=== PATIENT | male | born 1995 ===

== ENCOUNTER 2017-02-11 13:51 | Emergency (ER) | payer MEDICAID ==
[2017-02-11 14:11] VITALS: BP 138/85; PULSE 83; RESP 16; TEMP 97.8; O2SAT 98
--- NOTE | 2017-02-11 14:35 | ED PDOC ---
HPI: General Adult Time Seen by Provider: 02/11/17 14:13 Chief Complaint (Nursing): Headache Chief Complaint (Provider): Headache History Per: Patient History/Exam Limitations: no limitations Onset/Duration Of Symptoms: Intermittent Episodes Current Symptoms Are (Timing): Still Present Additional Complaint(s): 22 y/o male with past medical history of concussion (When 16y/o he was diagnosed with concussion had to go through therapy) presents to the ED complaining of intermittent, atraumatic right sided temporal headache since past month and a half. Patient states taking Aleve which provided relief of headache but states that since past 3 days symptoms havent resolved despite taking Aleve. Patient states that headache wakes him up from sleep in the morning and at times he tends to get nauseous but denies vomiting. Patient states sister has migraine headache. Reports no history of intracranial bleeding or skull fractures and denies fever, visual changes, trauma, rash, numbness, weakness or any further medical complaints. Past Medical History Reviewed: Historical Data, Nursing Documentation, Vital Signs Vital Signs: Last Vital Signs Temp 97.8 F 02/11/17 14:09 Pulse 83 02/11/17 14:09 Resp 16 02/11/17 14:09 BP 138/85 02/11/17 14:09 Pulse Ox 98 02/11/17 15:31 - Medical History PMH: Asthma Other PMH: Concussion - Family History Family History: States: Unknown Family Hx - Social History Current smoker - smoking cessation education provided: Yes (Ligth Smoker <10 cigarettes daily) Alcohol: Other (yes) Drugs: Denies - Home Medications Home Medications: Ambulatory Orders Medication Instructions Recorded Metoclopramide [Reglan] 10 mg PO Q8 PRN #20 tab 02/11/17 Naproxen [Naprosyn] 500 mg PO BID PRN #30 tab 02/11/17 - Allergies Allergies/Adverse Reactions: Allergies Allergy/AdvReac Type Severity Reaction Status Date / Time No Known Allergies Allergy Verified 02/11/17 14:09 Review of Systems ROS Statement: Except As Marked, All Systems Reviewed And Found Negative (As per HPI, otherwise negative) Constitutional: Negative for: Fever, Weakness, Other (numbness) Eyes: Negative for: Vision Change Gastrointestinal: Positive for: Nausea. Negative for: Vomiting Skin: Negative for: Rash Neurological: Positive for: Headache. Negative for: Other (trauma) Physical Exam - Reviewed Nursing Documentation Reviewed: Yes Vital Signs Reviewed: Yes - Physical Exam Appears: Positive for: Well, Non-toxic, No Acute Distress Head Exam: Positive for: ATRAUMATIC, NORMAL INSPECTION, NORMOCEPHALIC Skin: Positive for: Normal Color, Warm, Dry Eye Exam: Positive for: EOMI, Normal appearance, PERRL ENT: Positive for: Normal ENT Inspection Neck: Positive for: Normal, Painless ROM, Supple Cardiovascular/Chest: Positive for: Regular Rate, Rhythm. Negative for: Murmur Respiratory: Positive for: Normal Breath Sounds. Negative for: Accessory Muscle Use, Respiratory Distress Gastrointestinal/Abdominal: Positive for: Normal Exam, Bowel Sounds, Soft Back: Positive for: Normal Inspection Extremity: Positive for: Normal ROM. Negative for: Deformity Neurologic/Psych: Positive for: Alert, Oriented (x3) - ECG O2 Sat by Pulse Oximetry: 98 (RA) Pulse Ox Interpretation: Normal Medical Decision Making Medical Decision Making: Time: 14:19 Plan: CT head w/o contrast Toradol 30mg IM Metoclopramide 10mg PO Reevaluation 1524 CT head w/o contrast: negative. On re-evaluation, pt. reports good relief of headache. Advised to stop taking Aleve and take prescribed meds instead. Instructed to f/u with neuro for further evaluation and to return to ED immediately if symptoms persist or worsen. Time: 15:42 Upon provider reevaluation patient is feeling better, is medically stable, and requires no further treatment in the ED at this time. Patient will be discharged home with Rx for Reglan 10mg PO and Naproxen 500mg PO. Return if symptoms persist or worsen. Clinical Impression: Acute Headache Scribe Attestation: Documented by Lewis Flynn acting as a scribe for SORAYA Hidalgo. MD M[place]uley Attestation: All medical record entries made by the Scribe were at my direction and personally dictated by me. I have reviewed the chart and agree that the record accurately reflects my personal performance of the history, physical exam, medical decision making, and the department course for this patient. I have also personally directed, reviewed, and agree with the discharge instructions and disposition. Disposition - Clinical Impression Clinical Impression: Acute headache - Patient ED Disposition Is Patient to be Admitted: No - Disposition Referrals: [facility] [Outside] Disposition: Routine/Home Disposition Time: 15:42 Condition: STABLE Additional Instructions: Follow up with [facility] in 2 days for further evaluation. Return to ED immediately for any concerns or questions. Prescriptions: Metoclopramide [Reglan] 10 mg PO Q8 PRN #20 tab PRN Reason: headache or nausea Naproxen [Naprosyn] 500 mg PO BID PRN #30 tab PRN Reason: Pain Instructions: Acute Headache (ED) Forms: [employer] (Lao), [facility] ED School/Work Excuse Print Language: HEBREW
--- NOTE | 2017-02-11 14:38 | ED PDOC ---
HPI: Headache Time Seen by Provider: 02/11/17 14:13 Chief Complaint (Nursing): Headache Chief Complaint (Provider): Headache History Per: Patient History/Exam Limitations: no limitations Onset/Duration Of Symptoms: Intermittent Episodes (since a month and a half) Current Symptoms Are (Timing): Still Present Additional Complaint(s): 22 y/o male with past medical history of concussion (When 16y/o he was diagnosed with concussion had to go through therapy) presents to the ED complaining of intermittent, atraumatic right sided temporal headache since past month and a half. Patient states taking Aleve which provided relief of headache but states that since past 3 days symptoms havent resolved despite taking Aleve. Patient states that headache wakes him up from sleep in the morning and at times he tends to get nauseous but denies vomiting. Patient states sister has migraine headache. Reports no history of intracranial bleeding or skull fractures and denies fever, visual changes, trauma, rash, numbness, weakness or any further medical complaints. Past Medical History Reviewed: Historical Data, Nursing Documentation, Vital Signs Vital Signs: Last Vital Signs Temp 97.8 F 02/11/17 14:09 Pulse 83 02/11/17 14:09 Resp 16 02/11/17 14:09 BP 138/85 02/11/17 14:09 Pulse Ox 98 02/11/17 14:35 - Medical History PMH: Asthma Other PMH: Concussion - Family History Family History: States: Unknown Family Hx - Social History Current smoker - smoking cessation education provided: Yes (Ligth smoker <10 cigarettes daily) Alcohol: Other (yes) Drugs: Denies - Allergies Allergies/Adverse Reactions: Allergies Allergy/AdvReac Type Severity Reaction Status Date / Time No Known Allergies Allergy Verified 02/11/17 14:09 Review of Systems ROS Statement: Except As Marked, All Systems Reviewed And Found Negative (As per HPI, otherwise negative) Constitutional: Negative for: Fever, Weakness, Other (numbness) Eyes: Negative for: Vision Change Gastrointestinal: Positive for: Nausea. Negative for: Vomiting Skin: Negative for: Rash Neurological: Positive for: Headache (Intermittent, atraumatic right sided temporal headache ). Negative for: Other (trauma ) Physical Exam - Reviewed Nursing Documentation Reviewed: Yes Vital Signs Reviewed: Yes - Physical Exam Appears: Positive for: Well, Non-toxic, No Acute Distress Head Exam: Positive for: ATRAUMATIC, NORMAL INSPECTION, NORMOCEPHALIC Skin: Positive for: Normal Color, Warm, Dry Eye Exam: Positive for: EOMI, Normal appearance, PERRL ENT: Positive for: Normal ENT Inspection Neck: Positive for: Normal, Painless ROM, Supple Cardiovascular/Chest: Positive for: Regular Rate, Rhythm. Negative for: Murmur Respiratory: Positive for: Normal Breath Sounds. Negative for: Accessory Muscle Use, Respiratory Distress Gastrointestinal/Abdominal: Positive for: Normal Exam, Bowel Sounds, Soft Back: Positive for: Normal Inspection Extremity: Positive for: Normal ROM. Negative for: Deformity Neurologic/Psych: Positive for: Alert, Oriented (x3) - ECG O2 Sat by Pulse Oximetry: 98 (RA) Pulse Ox Interpretation: Normal Medical Decision Making Medical Decision Making: Time: 14:19 Plan: CT head w/o contrast Toradol 30mg IM Metoclopramide 10mg PO Reevaluation Scribe Attestation: Documented by Lewis Flynn acting as a scribe for SORAYA Hidalgo. Scribe Attestation: All medical record entries made by the Scribe were at my direction and personally dictated by me. I have reviewed the chart and agree that the record accurately reflects my personal performance of the history, physical exam, medical decision making, and the department course for this patient. I have also personally directed, reviewed, and agree with the discharge instructions and disposition. Disposition - Clinical Impression Clinical Impression: Viral syndrome - Disposition Referrals: [facility] [Outside] Disposition: Routine/Home Disposition Time: 14:33 Additional Instructions: Follow up with [facility] in 2 days for further evaluation. Return to ED immediately for any concerns or questions. Prescriptions: Benzonatate [Tessalon Perle] 100 mg PO Q8 PRN #30 capsule PRN Reason: Cough Naproxen [Naprosyn] 500 mg PO BID PRN #30 tab PRN Reason: pain or fever Instructions: Viral Syndrome (ED) Forms: [employer] (Khmer), [facility] ED School/Work Excuse
--- NOTE | 2017-02-11 15:08 | CT ---
PROCEDURE: CT HEAD WITHOUT CONTRAST. HISTORY: headache COMPARISON: CT head dated 11/29/2010. TECHNIQUE: Axial computed tomography images were obtained through the head/brain without intravenous contrast. Radiation dose: Total exam DLP = 832.7 mGy-cm. This CT exam was performed using one or more of the following dose reduction techniques: Automated exposure control, adjustment of the mA and/or kV according to patient size, and/or use of iterative reconstruction technique. FINDINGS: HEMORRHAGE: No intracranial hemorrhage. BRAIN: No mass effect or edema. No atrophy or chronic microvascular ischemic changes. VENTRICLES: Unremarkable. No hydrocephalus. CALVARIUM: Unremarkable. PARANASAL SINUSES: Unremarkable as visualized. No significant inflammatory changes. MASTOID AIR CELLS: Unremarkable as visualized. No inflammatory changes. OTHER FINDINGS: None. IMPRESSION: No acute intracranial pathology.
== END 2017-02-11 15:46 | disposition home or self-care (01) ==
LOC: H.ER 13:51
DX: R51 Headache (principal); R11.10 Vomiting, unspecified; J45.909 Unspecified asthma, uncomplicated; F17.210 Nicotine dependence, cigarettes, uncomplicated
CPT/HCPCS: 70450; 96372; 99285; J1885